=== PATIENT | female | born 1965 | race Caucasian/White ===

== ENCOUNTER → 2018-04-28 | Outpatient (CLI) | payer OTHER ==
[~2018-04-28] MED LIST: AZIT250 PO; DIPATR PO; LEVSOD50 PO; LISI20 PO; LOVA20 PO; METO50 PO; NIACIN
[2018-04-28 14:12] LABS: Free Thyroxine 1.29 ng/dL (0.70-1.60)
[2018-04-28 14:16] LABS: Thyroid Stimulating Hormone 1.84 uIU/mL (0.360-4.800)
== END | disposition home or self-care (01) ==
LOC: LAB 13:38 → LAB SHORT 13:38
PROVIDERS: Hospitalist
DX: E03.9 Hypothyroidism, unspecified (principal)
CPT/HCPCS: 84439; 84443

== ENCOUNTER → 2021-07-15 | Outpatient (CLI) | payer OTHER ==
[2021-07-15 20:08] LABS: Free Thyroxine 1.43 ng/dL (0.70-1.60); LDL/HDL RATIO 1.5; Triiodothyronine, Free 2.78 pg/mL (2.18-3.98); Very Low Density Lipoprot Chol 60 mg/dL (6-32)
[2021-07-15 20:09] LABS: CHOL/HDL RATIO 4.1; Cholesterol 156 mg/dL (50-200); HDL Cholesterol 38 mg/dL (>39); Low Density Lipoprotein Chol 58 mg/dL (0-110); Triglycerides 302 mg/dL (30-160)
== END | disposition home or self-care (01) ==
LOC: LAB SHORT 10:25
PROVIDERS: Hospitalist
DX: E11.9 Type 2 diabetes mellitus without complications (principal); E03.9 Hypothyroidism, unspecified; E78.5 Hyperlipidemia, unspecified
CPT/HCPCS: 80061; 82043; 83036; 84439; 84443; 84481

== ENCOUNTER → 2021-08-21 | Outpatient (CLI) | payer OTHER | END | disposition home or self-care (01) | LOC: PLD 12:32 → LAB SHORT 12:32 | DX: N83.201 Unspecified ovarian cyst, right side (principal); R93.89 Abnormal findings on diagnostic imaging of other specified body structures | CPT/HCPCS: 88305 ==

== ENCOUNTER → 2022-01-21 | Outpatient (CLI) | payer OTHER ==
[2022-01-21 14:33] LABS: Bun/Creatinine Ratio 17.6 (12.0-20.0); Calcium, Blood 8.9 mg/dL (8.5-10.1); Creatinine, Blood 0.85 mg/dL (0.40-1.00); Potassium, Blood 3.9 mmol/L (3.5-5.5)
== END | disposition home or self-care (01) ==
LOC: LAB SHORT 10:40 → LAB 10:40
PROVIDERS: Hospitalist
DX: N28.1 Cyst of kidney, acquired (principal)
CPT/HCPCS: 80048

== ENCOUNTER → 2024-04-13 | Outpatient (CLI) | payer OTHER ==
[2024-04-13 09:49] LABS: Source, Urine Voided
[2024-04-13 12:52] LABS: Appearance, Urine Clear (Clear); Bilirubin, Urine Neg (Neg); Blood, Urine Neg (Neg); Glucose Qualitative, Urine Neg (Neg); Ketones, Urine Neg (Neg); Leukocyte Esterase, Urine 1+ (Neg); Nitrite, Urine Neg (Neg); Protein, Urine Neg (Neg); Urobilinogen, Urine NORM (Normal)
[2024-04-13 13:56] LABS: Color, Urine Pale Yellow (P-Yellow)
[2024-04-13 13:57] LABS: Bacteria Few /hpf; Red Blood Cells, Urine 0-2 /hpf (0-2); Squamous Epithelial Cells Mod /hpf (Few)
== END ==
LOC: LAB 09:43 → LAB SHORT 09:43
PROVIDERS: Hospitalist
DX: Q61.3 Polycystic kidney, unspecified (principal); R80.9 Proteinuria, unspecified
CPT/HCPCS: 81001; 87086

== ENCOUNTER → 2024-07-28 | Outpatient (CLI) | payer OTHER ==
[2024-07-28 16:34] LABS: CHOL/HDL RATIO 3.5; Cholesterol 181 mg/dL (50-200); Free Thyroxine 1.52 ng/dL (0.70-1.60); HDL Cholesterol 52 mg/dL (>39); LDL/HDL RATIO 1.7; Low Density Lipoprotein Chol 90 mg/dL (0-110); Triglycerides 193 mg/dL (30-160); Very Low Density Lipoprot Chol 38 mg/dL (6-32)
== END ==
LOC: LAB 13:51 → LAB SHORT 13:51
PROVIDERS: Hospitalist
DX: E78.5 Hyperlipidemia, unspecified (principal); E03.9 Hypothyroidism, unspecified; E11.69 Type 2 diabetes mellitus with other specified complication
CPT/HCPCS: 80061; 83036; 84439; 84443

== ENCOUNTER → 2024-10-12 | Outpatient (CLI) | payer OTHER ==
[2024-10-12 15:09] LABS: Bilirubin, Urine Neg (Neg); Color, Urine Yellow (P-Yellow); Glucose Qualitative, Urine Neg (Neg); Ketones, Urine Neg (Neg); Leukocyte Esterase, Urine 2+ (Neg); Protein, Urine Neg (Neg); Specific Gravity, Urine 1.010 (1.003-1.022); Urobilinogen, Urine NORM (Normal)
[2024-10-12 15:19] LABS: Red Blood Cells, Urine 0-2 /hpf (0-2)
== END | disposition home or self-care (01) ==
LOC: LAB 14:16 → LAB SHORT 14:16 → LAB FUT 10-11 15:25
PROVIDERS: Hospitalist
DX: Q61.3 Polycystic kidney, unspecified (principal)
CPT/HCPCS: 81001; 87086